=== PATIENT | female | born 1985 | race Two or more races ===

== ENCOUNTER 2017-06-03 14:00 | Emergency (ER) | payer MEDICAID ==
[~2017-06-03] VITALS: Ht 160 cm; Wt 102.1 kg
[~2017-06-03 14:00] MED LIST: ALBUTEROL SULF8.5 GM INH; AZITHROMYCIN250 MG ORAL; AZITHROMYCIN250 MG PO; CEPHALEXIN500 MG ORAL; CIPRO500 MG PO; COLACE100 MG ORAL; HYDROCORTISONE28 G2 TP; IBUPROFEN400 MG PO; IBUPROFEN600 MG ORAL; IBUPROFEN600 MG PO; MEDROL DOSEPAK4 MG ORAL; NKM; NORCO 5-325 TA1 EACH ORAL; NORCO 5/3251 TAB ORAL; PHENAZOPYRIDIN100 MG ORAL; PREDNISONE20 MG ORAL; PREDNISONE20 MG PO; VALIUM5 MG PO; ZOFRAN8 MG ORAL
[2017-06-03 14:53] LABS: APPEARANCE,URINE CLEAR; KETONES,URINE NEGATIVE (NEGATIVE); LEUKOCYTE ESTERASE ,URINE 1+ (NEGATIVE); NITRITE,URINE NEGATIVE (NEGATIVE); PH,URINE 6 (4.5-8.0); PROTEIN,URINE NEGATIVE (NEGATIVE); UROBILINOGEN,URINE 1 MG/DL (0.0-1.0)
[2017-06-03 15:04] LABS: BACTERIA,URINE FEW /HPF; RBC,URINE 0-2 /HPF (0 - 2); SQUAMOUS EPITHELIAL CELL,UR FEW /LPF (NONE/OCC); WBC,URINE 0-2 /HPF (0 - 2)
--- NOTE | 2017-06-03 15:49 | Emergency Room Report ---
History of Present Illness General Chief Complaint: Abdominal Pain Source: Patient Present Illness HPI 31 YO Female presents to the ED C/O 04/10 in severity Left - sided adnexal pain monthly since november. pt. reports pain is usually same side and 1 week prior to her period. pt. states this time pain did not resolve after period. pt. reports hx of back problems and sciatica. denies worsening of sciatic symptoms. pt. states pain is exacerbated after walking. denies vaginal d/c, lesions, or hx of STI, pt. states she just has pap smear and STI testing performed by OBGYN and was all negative. pt. states she told OBGYN about her symptoms and has not had imaging. Pt states pain typically comes and goes , however now is constant. denies N/V/F/C, dysuria, frequency, or . denies trauma or fall. pt. states pain will sometimes radiate down to the distal left ant. thigh. denies abdominal or flank pain. Denies constipation or diarrhea. denies hx of hernias. Denies CP, Palpitations, LOC, AMS, dizziness, Changes in Vision, Sensation, paresthesias, or a sudden severe headache. Allergies: Coded Allergies: No Known Allergies (Unverified , 09/21/12) Patient History Past Medical History: see triage record Past Surgical History: none Pertinent Family History: none Last Menstrual Period: 05/27/17 Now: No : 4 Para: 1 Reviewed Nursing Documentation: PMH: Agreed, PSxH: Agreed Nursing Documentation-PMH Hx Cardiac Problems: Yes - HIGH CHOLESTEROL Hx Asthma: Yes Review of Systems All Other Systems: negative except mentioned in HPI Physical Exam Vital Signs Date Time Temp Pulse Resp B/P Pulse Ox O2 Delivery O2 Flow Rate FiO2 06/03/17 14:17 98.4 90 18 113/82 96 Room Air Sp02 EP Interpretation: reviewed, normal General Appearance: no apparent distress, alert, GCS 15, non-toxic Head: normocephalic, atraumatic Eyes: bilateral eye PERRL, bilateral eye normal inspection ENT: hearing grossly normal, normal pharynx, no angioedema, normal voice Neck: full range of motion, supple/symm/no masses Respiratory: lungs clear, normal breath sounds, speaking full sentences Cardiovascular #1: regular rate, rhythm, no edema Gastrointestinal: normal bowel sounds, non tender, soft, no guarding, no rebound Rectal: deferred Genitourinary: normal inspection, no CVA tenderness, other - left adnexal ttp. no palpable hernias. Musculoskeletal: back normal, gait/station normal, normal range of motion, non- tender Neurologic: alert, oriented x3, responsive, motor strength/tone normal, sensory intact, speech normal Psychiatric: judgement/insight normal, memory normal, mood/affect normal Skin: normal color, no rash, warm/dry, well hydrated Lymphatic: no adenopathy Medical Decision Making PA Attestation Dr. tee is my supervising Physician whom patient management has been discussed with. Diagnostic Impression: Primary Impression: Adnexal fullness Additional Impressions: Left adnexal tenderness Round ligament pain ER Course 31 YO Female presents to the ED C/O 04/10 in severity Left - sided adnexal pain monthly since november. pt. reports pain is usually same side and 1 week prior to her period. pt. states this time pain did not resolve after period. pt. reports hx of back problems and sciatica. denies worsening of sciatic symptoms. pt. states pain is exacerbated after walking. denies vaginal d/c, lesions, or hx of STI, pt. states she just has pap smear and STI testing performed by OBGYN and was all negative. pt. states she told OBGYN about her symptoms and has not had imaging. Pt states pain typically comes and goes , however now is constant. denies N/V/F/C, dysuria, frequency, or . denies trauma or fall. pt. states pain will sometimes radiate down to the distal left ant. thigh. denies abdominal or flank pain. Denies constipation or diarrhea. denies hx of hernias. Denies CP, Palpitations, LOC, AMS, dizziness, Changes in Vision, Sensation, paresthesias, or a sudden severe headache. Ddx considered but are not limited to Diverticulitis, acute appy, ovarian torsion, ectopic , PID tubo-ovarian abscess, ovarian cyst, UTI just to name a few. Vital signs: are WNL, pt. is afebrile H&PE are most consistent with possible ovarian cyst, will r/o torsion, ectopic , and stone. ORDERS: -UA:WNL -URINE HCG:Negative -Pelvic US Complete: WNL, no torsion, cysts, or masses per official radiology report. ED INTERVENTIONS: - none at this time. pt. declined motrin. d/w pt. she is stable for close outpatient follow up with her PCP and OBGYN. DISCHARGE: At this time pt. is stable for d/c to home. Will provide printed patient care instructions, and any necessary prescriptions. Care plan and follow up instructions have been discussed with the patient prior to discharge. Labs Test 06/03/17 14:30 Urine Color Yellow Urine Appearance Clear Urine pH 6 (4.5-8.0) Urine Specific [place] 1.015 (1.005-1.035) Urine Protein Negative (NEGATIVE) Urine Glucose (UA) Negative (NEGATIVE) Urine Ketones Negative (NEGATIVE) Urine Occult Blood 2+ (NEGATIVE) Urine Nitrite Negative (NEGATIVE) Urine Bilirubin Negative (NEGATIVE) Urine Urobilinogen 1 MG/DL (0.0-1.0) Urine Leukocyte Esterase 1+ (NEGATIVE) Urine RBC 0-2 /HPF (0 - 2) Urine WBC 0-2 /HPF (0 - 2) Urine Squamous Epithelial Cells Few /LPF (NONE/OCC) Urine Bacteria Few /HPF (NONE) Urine HCG, Qualitative Negative Last Vital Signs Date Time Temp Pulse Resp B/P Pulse Ox O2 Delivery O2 Flow Rate FiO2 06/03/17 14:17 98.4 90 18 113/82 96 Room Air Disposition: HOME, SELF-CARE Condition: Stable Scripts Ibuprofen* (MOTRIN*) 600 Mg Tablet 600 MG ORAL THREE TIMES A DAY, #30 TAB 0 Refills Prov: Waleska Bahena 06/03/17 Referrals: PILI DEGROOT,REFERRING (PCP) Patient Instructions: Pain Without a Known Cause Additional Instructions: Take medications as directed. Follow up with a Primary Care Provider in 3-5 days, even if your symptoms have resolved. --Please review list of primary care clinics, if you do not already have a primary care provider Return sooner to ED if new symptoms occur, or current symptoms become worse. - Please note that this Emergency Department Report was dictated using [employer] technology software, occasionally this can lead to erroneous entry secondary to interpretation by the dictation equipment. Waleska Bahena Jun 03, 2017 15:49
--- NOTE | 2017-06-03 16:01 | Diagnostic Imaging Report ---
Indication:Lower abdominal and pelvic pain Technique: Grayscale and duplex Doppler imaging of the pelvis performed utilizing a transabdominal scan and endovaginal scan. Comparison: None Findings: No abnormalities of the uterus or ovaries identified. The uterus measures 9.6 x 6.7 x 4.7 cm. Endometrium is normal in appearance and measures between 3 and 4 mm in thickness. Some follicles are noted within both ovaries. Both ovaries show Doppler evidence of blood flow. Right ovary measures 4.3 x 3.4 x 1.9 cm. Left ovary 2.8 x 3 point 4 x 4 2.0 cm. Impression: Negative pelvic ultrasound
[2017-06-03] MEDS ORDERED: IBUPROFEN600 MG ORAL (16:10)
[2017-06-03 16:27] VITALS: BP 113/82
== END 2017-06-03 16:15 | disposition home or self-care (01) ==
LOC: EMR 14:50
DX: R10.2 Pelvic and perineal pain (principal)
CPT/HCPCS: 76830; 76856; 81003; 81025; 99283

== ENCOUNTER 2017-06-15 17:08 | Emergency (ER) | payer MEDICAID ==
[~2017-06-15] VITALS: Ht 160 cm; Wt 111.1 kg
[2017-06-15 17:14] VITALS: BP 117/79
[2017-06-15] MEDS ORDERED: ALBUTEROL SULF8.5 GM INH (17:18)
[2017-06-15] MEDS ORDERED: Ipratropium 0.02% Inh Soln 2.5ml UD HHN ONE (17:45)
[2017-06-15] MEDS ORDERED: Albuterol ud Inhalation HHN ONE (17:45)
[2017-06-15] MEDS ORDERED: PROAIR HFA8.5 GM INH (18:27)
[2017-06-15] MEDS ORDERED: PROMETHAZI6.25 MG/1 ORAL (18:27)
[2017-06-15] MEDS ORDERED: IBUPROFEN600 MG ORAL (18:27)
[2017-06-15] MEDS ORDERED: PREDNISONE20 MG ORAL (18:27)
[2017-06-15 18:30] VITALS: BP 119/81
--- NOTE | 2017-06-15 20:37 | Emergency Room Report ---
History of Present Illness General Chief Complaint: Upper Respiratory Illness Source: Patient Present Illness HPI The patient is a 31-year-old female presenting for subjective fevers and productive cough for the past 5 days. She states that she recently returned from a [facility] [place]. No known sick contacts. She admits to a history of asthma but has not had to use albuterol recently. She this is a green sputum with cough. She denies other symptoms including nausea, vomiting, shortness of breath, chest pain, abdominal pain, headache, neck pain or stiffness Allergies: Coded Allergies: No Known Allergies (Unverified , 09/21/12) Patient History Past Medical History: see triage record Pertinent Family History: none Last Menstrual Period: Two weeks ago Now: No Reviewed Nursing Documentation: PMH: Agreed, PSxH: Agreed Nursing Documentation-PMH Hx Cardiac Problems: Yes - HIGH CHOLESTEROL Review of Systems All Other Systems: negative except mentioned in HPI Physical Exam Vital Signs Date Time Temp Pulse Resp B/P Pulse Ox O2 Delivery O2 Flow Rate FiO2 06/15/17 17:14 99.3 100 18 117/79 97 Room Air 06/15/17 17:49 21 Sp02 EP Interpretation: reviewed, normal General Appearance: no apparent distress, alert, GCS 15, non-toxic Head: normocephalic, atraumatic Eyes: bilateral eye PERRL, bilateral eye normal inspection ENT: hearing grossly normal, normal pharynx, no angioedema, normal voice Neck: full range of motion, supple/symm/no masses Respiratory: chest non-tender, no accessory muscle use, wheezing - diffuse Cardiovascular #1: regular rate, rhythm, no edema Musculoskeletal: back normal, gait/station normal, normal range of motion, non- tender Neurologic: alert, oriented x3, responsive, motor strength/tone normal, sensory intact, speech normal Psychiatric: judgement/insight normal, memory normal, mood/affect normal, no suicidal/homicidal ideation Skin: normal color, no rash, warm/dry, well hydrated Lymphatic: no adenopathy Medical Decision Making PA Attestation Dr. Giles is my supervising physician. Patient management was discussed with my supervising physician Diagnostic Impression: Primary Impression: Bronchitis ER Course The patient is a 31-year-old female presenting for fever and cough Differential diagnosis include but not limited to pharyngitis, sinusitis, AOM, bronchitis, PNA PE: afebrile. No tachypnea. No apparent distress. No TTP over maxillary or frontal sinuses. Lungs: diffuse wheezing. No accessory muscle use. No resp distress Heart: RRR, no abnormal heart sounds Ears: external auditory canal clear. Non erythematous. Bilat TM intact. Cone of light present bilat. No bulging of TM. No serous fluid seen. no nasal D/C Nor cervical lymphad No tonsillar exudate. Uvula midline.Oropharynx non erythematous The patient is given a breathing treatment and symptoms have improved. Wheezing has decreased. CXR unremarkable The patient will be discharged home with a prescription for steroids, cough medication, and motrin Chest X-Ray Diagnostic Results Chest X-Ray Diagnostic Results : Chest X-Ray Ordered: Yes # of Views/Limited/Complete: 1 View Indication: Chest Pain EP Interpretation: Yes Interpretation: no consolidation, no effusion, no pneumothorax Impression: No acute disease Interpreting ER Provider: Myself KILO Scribe Text My interpretation of the chest xrays are there is no consolidation, no effusion , no acute cardiopulmonary disease, no pneumothorax Last Vital Signs Date Time Temp Pulse Resp B/P Pulse Ox O2 Delivery O2 Flow Rate FiO2 06/15/17 18:30 99.3 89 17 119/81 100 Room Air 21 Status: improved Disposition: HOME, SELF-CARE Condition: Improved Scripts Promethazine Hcl (PROMETHAZINE HCL*) 6.25 Mg/5 Ml Syrup 5 ML ORAL Q8H, #120 ML 0 Refills Prov: TERZIAN,RUSTAM P.A. 06/15/17 Prednisone* (PREDNISONE*) 20 Mg Tablet 40 MG ORAL DAILY, #10 TAB Prov: TERZIAN,RUSTAM P.A. 06/15/17 Albuterol Sulfate* (PROAIR HFA*) 8.5 Gm Hfa.aer.ad 2 PUFFS INH Q6H, #8.5 GM 0 Refills Prov: TERZIAN,RUSTAM P.A. 06/15/17 Ibuprofen* (MOTRIN*) 600 Mg Tablet 600 MG ORAL Q8H Y for For Pain, #30 TAB 0 Refills Prov: TERZIAN,RUSTAM P.A. 06/15/17 Referrals: PILI DEGROOT,REFERRING (PCP) Patient Instructions: Acute Bronchitis Additional Instructions: I discussed my findings with the patient. All questions and concerns have been answered. Treatment and medication compliance have been addressed. I advised the patient that they need to follow up with PMD in 3-5 days. Return to ED if pain remains or worsens, cough worsens or remains, you notice blood in your sputum, you notice wheezing, you experience a fever, or if needed for any reason. Patient verbalized understanding of discharge instructions. RUSTAM RODRIGUEZ Jun 15, 2017 20:37
--- NOTE | 2017-06-16 09:46 | Diagnostic Imaging Report ---
Indication: COUGH Technique: One view of the chest Comparison: 10/16/2015 Findings: Lungs and pleural spaces are clear. Heart size is normal . No significant change Impression: No acute process
== END 2017-06-15 18:30 | disposition home or self-care (01) ==
LOC: EMR 17:31
DX: J20.9 Acute bronchitis, unspecified (principal)
CPT/HCPCS: 71010; 94640; 94664; 99284

== ENCOUNTER 2017-06-21 10:42 | Emergency (ER) | payer MEDICAID ==
[~2017-06-21] VITALS: Ht 160 cm; Wt 102.1 kg
[~2017-06-21 10:42] MED LIST changes: +PROAIR HFA8.5 GM INH; +PROMETHAZI6.25 MG/1 ORAL
[2017-06-21 10:51] VITALS: BP 122/80
[2017-06-21] MEDS ORDERED: AZITHROMYCIN250 MG ORAL (11:28)
[2017-06-21 11:40] VITALS: BP 122/80
--- NOTE | 2017-06-21 12:03 | Emergency Room Report ---
History of Present Illness General Chief Complaint: Upper Respiratory Illness Source: Patient Present Illness HPI 31YOF with continued cough after being treated for "bronchitis" here recently Woke up with chills, sweat this morning Taking meds as prescribed Denies SOB, chest pain, abd pain, headache Allergies: Coded Allergies: No Known Allergies (Unverified , 09/21/12) Patient History Past Medical History: none Past Surgical History: none Pertinent Family History: none Social History: Denies: alcohol use, drug use, smoking Last Menstrual Period: may Now: No Immunizations: UTD Reviewed Nursing Documentation: PMH: Agreed, PSxH: Agreed Nursing Documentation-PMH Past Medical History: No History, Except For Hx Cardiac Problems: Yes - HIGH CHOLESTEROL Hx Asthma: Yes Review of Systems All Other Systems: negative except mentioned in HPI Physical Exam Vital Signs Date Time Temp Pulse Resp B/P Pulse Ox O2 Delivery O2 Flow Rate FiO2 06/21/17 10:51 98.1 67 18 122/80 98 Room Air Sp02 EP Interpretation: reviewed, normal General Appearance: normal inspection, well appearing, no apparent distress, alert, GCS 15, non-toxic Head: normocephalic, atraumatic Eyes: bilateral eye EOMI, bilateral eye PERRL ENT: normal ENT inspection, hearing grossly normal, normal voice Neck: normal inspection, full range of motion, supple, no meningismus, no bony tend Respiratory: normal inspection, lungs clear, normal breath sounds, no respiratory distress, no retraction, no accessory muscle use, no wheezing, speaking full sentences Cardiovascular #1: regular rate, rhythm, no edema Gastrointestinal: normal inspection, normal bowel sounds, non tender, soft, no guarding, no hernia Genitourinary: no CVA tenderness Musculoskeletal: normal inspection, back normal, normal range of motion, Adair' s Sign negative Neurologic: normal inspection, alert, oriented x3, responsive, cafeteria attendant III-XII nml as tested, motor strength/tone normal, speech normal Psychiatric: normal inspection, judgement/insight normal, mood/affect normal Skin: normal inspection, normal color, no rash Medical Decision Making Diagnostic Impression: Primary Impression: Upper respiratory infection Qualified Codes: J06.9 - Acute upper respiratory infection, unspecified; B97.89 - Other viral agents as the cause of diseases classified elsewhere Additional Impression: Atypical pneumonia ER Course VSS. Afebrile. No signs or symptoms of pneumonia, sepsis Given chills, will add on Zpack for atypical PNA PMD followup DC home Last Vital Signs Date Time Temp Pulse Resp B/P Pulse Ox O2 Delivery O2 Flow Rate FiO2 06/21/17 11:23 67 18 Room Air 06/21/17 10:51 98.1 122/80 98 Status: improved Disposition: HOME, SELF-CARE Condition: Improved Scripts Azithromycin* (ZITHROMAX*) 250 Mg Tablet 250 MG ORAL DAILY, #6 TAB 0 Refills Take two tablets by mouth today, then take one tablet by mouth daily for four days Prov: INESSA PHILLIP M.D. 06/21/17 Referrals: PILI DEGROOT,REFERRING (PCP) Patient Instructions: Upper Respiratory Infection, Adult INESSA PHILLIP M.D. Jun 21, 2017 12:03
== END 2017-06-21 11:40 | disposition home or self-care (01) ==
LOC: EMR 11:10
DX: J18.9 Pneumonia, unspecified organism (principal); J45.909 Unspecified asthma, uncomplicated
CPT/HCPCS: 99283

== ENCOUNTER 2018-03-20 16:33 | Emergency (ER) | payer MEDICAID ==
[~2018-03-20] VITALS: Ht 160 cm; Wt 99.8 kg
[2018-03-20 16:41] VITALS: BP 115/77
--- NOTE | 2018-03-20 16:56 | Emergency Room Report ---
History of Present Illness General Chief Complaint: Flu Like Symptoms Present Illness HPI 32-year-old female presents to the emergency department complaining of 7 out of 10 in severity right ear pain in addition to thrush on her tongue. Patient also reports that she has a sore throat. Patient denies history of immunocompromise she denies history of diabetes. Patient does have a history of asthma and has an inhaler. Patient is not sure what the name of her inhaler is. Patient reports that she has felt feverish over the course of 2 days. Patient states that her ear pain is the most significant symptom. Patient denies ill contacts or recent travel. Denies CP, Palpitations, tinnitus, LOC, AMS, dizziness, Changes in Vision, Sensation, paresthesias, or a sudden severe headache. Allergies: Coded Allergies: No Known Allergies (Unverified , 09/21/12) Patient History Past Medical History: see triage record, asthma Past Surgical History: none Pertinent Family History: none, other - high cholesterol Now: No Immunizations: UTD Reviewed Nursing Documentation: PMH: Agreed; PSxH: Agreed Nursing Documentation-PMH Hx Cardiac Problems: Yes - HIGH CHOLESTEROL Hx Asthma: Yes Review of Systems All Other Systems: negative except mentioned in HPI Physical Exam Vital Signs Date Time Temp Pulse Resp B/P (MAP) Pulse Ox O2 Delivery O2 Flow Rate FiO2 03/20/18 16:38 98.3 92 20 115/77 99 Room Air 98.2 Sp02 EP Interpretation: reviewed, normal General Appearance: no apparent distress, alert, GCS 15, non-toxic Head: normocephalic, atraumatic Eyes: bilateral eye normal inspection, bilateral eye PERRL ENT: hearing grossly normal, normal voice, uvula midline, moist mucus membranes , pharyngeal erythema, other - Right TM Is erythematous and bulging. Canal is WNL no lacerations or discharge. the TM is intact/not perforated, no external ear ttp. There is a white non-adherent film on the posterior aspect of the tongue, more pronounced on the left side. no obvious migration down the throat. Neck: full range of motion, no meningismus Respiratory: chest non-tender, lungs clear, normal breath sounds, no rhonchi, no respiratory distress, no wheezing, speaking full sentences Cardiovascular #1: regular rate, rhythm Musculoskeletal: back normal, gait/station normal, normal range of motion Neurologic: alert, oriented x3, responsive, motor strength/tone normal, sensory intact, speech normal, grossly normal Psychiatric: judgement/insight normal Skin: normal color, no rash, warm/dry, well hydrated Lymphatic: no adenopathy Medical Decision Making PA Attestation Dr. Giles is my supervising Physician whom patient management has been discussed with. Diagnostic Impression: Primary Impression: Otitis media Qualified Codes: H65.91 - Unspecified nonsuppurative otitis media, right ear Additional Impressions: Nasal congestion Oral thrush ER Course 32-year-old female presents to the emergency department complaining of 7 out of 10 in severity right ear pain in addition to thrush on her tongue. Patient also reports that she has a sore throat. Patient denies history of immunocompromise she denies history of diabetes. Patient does have a history of asthma and has an inhaler. Patient is not sure what the name of her inhaler is. Patient reports that she has felt feverish over the course of 2 days. Patient states that her ear pain is the most significant symptom. Patient denies ill contacts or recent travel. Denies CP, Palpitations, tinnitus, LOC, AMS, dizziness, Changes in Vision, Sensation, paresthesias, or a sudden severe headache. Ddx considered but are not limited to OM, OE, mastoiditis, TM perforation, FB, Thrush, diphtheria, systemic fungal infection just to name a few. Vital signs: are WNL, pt. is afebrile H&PE are most consistent with otitis media. the Canal is WNL no lacerations or discharge. the TM is intact/not perforated. ORDERS: none required at this time, the diagnosis is clinical -OTOSCOPY: Right TM Is erythematous and bulging. Canal is WNL no lacerations or discharge. the TM is intact/not perforated. - There is a white non-adherent film on the posterior aspect of the tongue, more pronounced on the left side. no obvious migration down the throat. ED INTERVENTIONS: None required at this time. DISCHARGE: At this time pt. is stable for d/c to home. With PO ABX. Will provide printed patient care instructions, and any necessary prescriptions. Care plan and follow up instructions have been discussed with the patient prior to discharge. RX: Augmentin Suspension 600mg/5ml - take 2.5ml BID x 10 days Last Vital Signs Date Time Temp Pulse Resp B/P (MAP) Pulse Ox O2 Delivery O2 Flow Rate FiO2 03/20/18 16:41 Room Air 03/20/18 16:41 98.2 92 20 115/77 99 98.2 Disposition: HOME, SELF-CARE Condition: Stable Scripts Nystatin* (NYSTATIN*) 100,000 Unit/1 Ml Oral.susp 5 ML ORAL FOUR TIMES A DAY for 5 Days, #150 ML Swish in the mouth and retain for as long as possible (several minutes) before swallowing Prov: Waleska Bahena 03/20/18 Oxymetazoline Hcl* (AFRIN*) 15 Ml Mist 2 SPRAYS NASAL TWICE A DAY for 3 Days, #15 ML 0 Refills DO NOT USE FOR MORE THAN 3 CONSECUTIVE DAYS. Prov: Waleska Bahena 03/20/18 Amoxicillin/Potassium Clav 875-125* (AUGMENTIN 875-125 TABLET*) 1 Each Tablet 1 TAB ORAL TWICE A DAY for 7 Days, #14 TAB Prov: Waleska Bahena 03/20/18 Patient Instructions: Otitis Media, Adult, Thrush, Adult, [id number] Additional Instructions: Take medications as directed. Follow up with a Primary Care Provider in 3-5 days, even if your symptoms have resolved. --Please review list of primary care clinics, if you do not already have a primary care provider Return sooner to ED if new symptoms occur, or current symptoms become worse. - Please note that this Emergency Department Report was dictated using [employer] technology software, occasionally this can lead to erroneous entry secondary to interpretation by the dictation equipment. Waleska Bahena March 20, 2018 16:56
[2018-03-20] MEDS ORDERED: AFRIN15 ML NASAL (17:09)
[2018-03-20] MEDS ORDERED: NYSTATIN100000 UN1 ORAL (17:09)
[2018-03-20] MEDS ORDERED: AUGMENTIN 875-1 EAC1 ORAL (17:09)
[2018-03-20 17:35] VITALS: BP 115/77
== END 2018-03-20 17:36 | disposition home or self-care (01) ==
LOC: EMR 17:05
DX: H66.91 Otitis media, unspecified, right ear (principal); R09.81 Nasal congestion; B37.0 Candidal stomatitis
CPT/HCPCS: 99284

== ENCOUNTER 2018-07-25 06:55 | Emergency (ER) | payer MEDICAID ==
[~2018-07-25] VITALS: Ht 160 cm; Wt 99.3 kg
[~2018-07-25 06:55] MED LIST changes: +AFRIN15 ML NASAL; +AUGMENTIN 875-1 EAC1 ORAL; +NYSTATIN100000 UN1 ORAL
[2018-07-25] MEDS ORDERED: ADULT WAL-100 MG/5 M ORAL (07:32)
[2018-07-25] MEDS ORDERED: PREDNISONE20 MG ORAL (07:32)
[2018-07-25] MEDS ORDERED: PROAIR HFA8.5 GM INH (07:32)
[2018-07-25 07:39] VITALS: BP 140/83
--- NOTE | 2018-07-25 07:57 | Emergency Room Report ---
History of Present Illness General Chief Complaint: Flu Like Symptoms Source: Patient Present Illness HPI Patient is a 32-year-old female who presented after increased nasal congestion and cough. Patient had recently been seen by her ENT and was started on amoxicillin for tonsillitis. The patient subsequently been seen by her primary care physician and had been started on azithromycin for bronchitis. The patient had prior history of asthma. She reports having increased cough with clear phlegm. She presents being febrile several days ago but denies any recent fever. She had not been vomiting. Allergies: Coded Allergies: No Known Allergies (Unverified , 09/21/12) Patient History Last Menstrual Period: Now: No : 4 Para: 1 Reviewed Nursing Documentation: PMH: Agreed; PSxH: Agreed Nursing Documentation-PMH Past Medical History: No History, Except For Hx Cardiac Problems: Yes - HIGH CHOLESTEROL Hx Asthma: Yes Review of Systems All Other Systems: negative except mentioned in HPI Physical Exam Vital Signs Date Time Temp Pulse Resp B/P (MAP) Pulse Ox O2 Delivery O2 Flow Rate FiO2 07/25/18 07:03 98.2 84 16 140/83 98 Room Air 98.2 General Appearance: well appearing, no apparent distress, alert, GCS 15 Head: normocephalic, atraumatic ENT: hearing grossly normal, normal voice, other Neck: full range of motion, supple Respiratory: no respiratory distress, speaking full sentences Cardiovascular #1: normal inspection, regular rate, rhythm, no edema Gastrointestinal: normal inspection Musculoskeletal: normal inspection, no calf tenderness Neurologic: normal gait Psychiatric: mood/affect normal Skin: no rash Medical Decision Making Diagnostic Impression: Primary Impression: Bronchitis ER Course Patient presented for nasal congestion cough. Differential diagnosis included but was not limited to bronchitis, pneumonia, pulmonary embolism, pericarditis, asthma, foreign body. Patient has a benign exam and does not appear to require any further imaging or laboratory testing at this time. The patient presented in some residual bronchitis from likely viral respiratory infection. The patient does not appear to be actively infected at this time. The patient given prescription for oral steroids as well as cough medications. Patient is advised follow-up with her primary care physician and to return if there is any worsening of condition Last Vital Signs Date Time Temp Pulse Resp B/P (MAP) Pulse Ox O2 Delivery O2 Flow Rate FiO2 07/25/18 07:39 98.2 16 140/83 98 Room Air 98.2 9/24/18 07:13 84 Status: improved Disposition: HOME, SELF-CARE Condition: Stable Scripts Guaifenesin* (ADULT WAL-TUSSIN*) 100 Mg/5 Ml Liquid 10 ML ORAL Q4H, #120 ML Prov: Janes Giles MD 07/25/18 Prednisone* (PREDNISONE*) 20 Mg Tablet 40 MG ORAL DAILY, #10 TAB Prov: Janes Giles MD 07/25/18 Albuterol Sulfate* (PROAIR HFA*) 8.5 Gm Hfa.aer.ad 2 PUFFS INH Q6H, #8.5 GM 0 Refills Prov: Janes Giles MD 07/25/18 Referrals: NON PHYSICIAN (PCP) Patient Instructions: Acute Bronchitis Janes Giles MD Jul 25, 2018 07:57
== END 2018-07-25 07:39 | disposition home or self-care (01) ==
LOC: EMR 07:10
DX: J45.909 Unspecified asthma, uncomplicated (principal); E78.00 Pure hypercholesterolemia, unspecified
CPT/HCPCS: 99283

== ENCOUNTER 2018-08-06 09:30 | Emergency (ER) | payer MEDICAID ==
[~2018-08-06] VITALS: Ht 160 cm; Wt 98.9 kg
[~2018-08-06 09:30] MED LIST changes: +ADULT WAL-100 MG/5 M ORAL
--- NOTE | 2018-08-06 10:05 | Emergency Room Report ---
History of Present Illness General Chief Complaint: Asthma Source: Patient Present Illness ELIZ Smith is a very pleasant 32-year-old female who presents with shortness of breath wheezing nasal/chest congestion for the last month. She has been followed closely by her PCP. She has been treated with 2 courses of antibiotics. She was also treated with prednisone. She has used her albuterol intermittently. Her PCP asked her to stop Claritin use in anticipation of certified genetic counselor consultation. She is waiting for referral at this time. She does use tobacco. She stopped smoking cigarettes 2 weeks ago. She recently began smoking marijuana using papers and blunts. She has smoked more than she had in the past. She denies any chest pain. She's most concerned with shortness of breath with exertion and wheezing. Allergies: Coded Allergies: No Known Allergies (Unverified , 09/21/12) Patient History Last Menstrual Period: 07/17/2018 Now: No Reviewed Nursing Documentation: PMH: Agreed; PSxH: Agreed Nursing Documentation-PMH Past Medical History: No History, Except For Hx Cardiac Problems: Yes - HIGH CHOLESTEROL Hx Asthma: Yes - bronchitis Review of Systems Constitutional: Reports: malaise; Denies: fever Respiratory: Reports: cough, wheezing, sputum Cardiovascular: Denies: chest pain Skin: Denies: rash Neurological: Denies: headache Physical Exam Vital Signs Date Time Temp Pulse Resp B/P (MAP) Pulse Ox O2 Delivery O2 Flow Rate FiO2 08/06/18 09:42 98.2 93 14 110/74 96 Room Air 98.2 Sp02 EP Interpretation: reviewed, normal General Appearance: no apparent distress, alert, GCS 15, non-toxic Head: normocephalic, atraumatic Eyes: bilateral eye normal inspection ENT: hearing grossly normal, normal pharynx, no angioedema, normal voice Neck: full range of motion, supple/symm/no masses Respiratory: chest non-tender, lungs clear, normal breath sounds, no rhonchi, no respiratory distress, no retraction, no accessory muscle use, no wheezing, speaking full sentences Cardiovascular #1: regular rate, rhythm, no edema Cardiovascular #2: 2+ radial (R) Gastrointestinal: normal bowel sounds, non tender, soft, non-distended, no guarding, no rebound Genitourinary: normal inspection, no CVA tenderness Musculoskeletal: back normal, gait/station normal, normal range of motion, non- tender, calf tenderness Neurologic: alert, oriented x3, responsive, motor strength/tone normal, sensory intact, speech normal Psychiatric: judgement/insight normal, memory normal, mood/affect normal, no suicidal/homicidal ideation Skin: normal color, no rash, warm/dry, well hydrated Lymphatic: no adenopathy Medical Decision Making Diagnostic Impression: Primary Impression: Asthma ER Course Sarah is a pleasant 32 yo female who was recently diagnosed with asthma by PCP. She has had wheezing since childhood. Multiple family members have hx of asthma. Encouraged smoking cessation of any kind. I encouraged regular use of albuterol and resuming use of claritin. She was reassured to hear that I did not suspect PNA. No indication of PE/ACS/PTX. dc'd home Normal vital signs reviewed Last Vital Signs Date Time Temp Pulse Resp B/P (MAP) Pulse Ox O2 Delivery O2 Flow Rate FiO2 08/06/18 09:55 93 14 Room Air 08/06/18 09:42 98.2 110/74 96 98.2 Disposition: HOME, SELF-CARE Candida Son MD Aug 06, 2018 10:05
[2018-08-06 10:12] VITALS: BP 114/78
== END 2018-08-06 10:12 | disposition home or self-care (01) ==
LOC: EMR 10:00
DX: J45.909 Unspecified asthma, uncomplicated (principal); E78.00 Pure hypercholesterolemia, unspecified
CPT/HCPCS: 99282

== ENCOUNTER 2020-09-25 09:18 | Emergency (ER) | payer MEDICAID ==
[~2020-09-25] VITALS: Ht 160 cm; Wt 97.5 kg
[2020-09-25] MEDS ORDERED: BACLOFEN10 MG ORAL (09:28)
--- NOTE | 2020-09-25 09:31 | NUR ---
ED Nurse Note: Pt ambulated to ed c/o right lower back pain radiating to right hamstring and right calve s/p lifting furniture "consistently 3 weeks at work". Pt reports pain as a "pulling" sensation. Skin, dry, intacnt. No bruising, deformities noted.
--- NOTE | 2020-09-25 09:32 | NUR ---
ED Nurse Note: Pt states that she was seen at an urgent care and was provided with Baclofen. "It helped but the pain returns"
[2020-09-25 09:33] VITALS: BP 117/78
--- NOTE | 2020-09-25 09:34 | NUR ---
ED Nurse Note: ERMD at bedside
[2020-09-25 09:40] VITALS: BP 123/74
--- NOTE | 2020-09-25 09:40 | NUR ---
ER DISCHARGE NOTE: Patient is cleared to be discharged per ERMD, pt is aox4, on room air, with stable vital signs. pt was given dc and prescription instructions, pt was able to verbalize understanding, pt id band removed. pt is able to ambulate with steady gait. pt took all belongings.
[2020-09-25] MEDS ORDERED: ROBAXIN-750750 MG PO (09:46)
[2020-09-25] MEDS ORDERED: LIDODERM700 M1 TOPIC (09:46)
[2020-09-25] MEDS ORDERED: IBUPROFEN600 M1 ORAL (09:46)
--- NOTE | 2020-09-25 10:11 | Emergency Room Report ---
History of Present Illness General Chief Complaint: Lower Back Pain or Injury Source: Patient Present Illness HPI 34-year-old female presents complaining of back pain. States this started after lifting heavy items. Started 3 weeks ago. Pain is right-sided, dull, radiating down to the buttock. 9 out of 10. Went to urgent care was prescribed baclofen with minimal relief. Denies bowel or bladder incontinence. Denies any leg or motor weakness. No other aggravating relieving factors. Denies any other associated symptoms Allergies: Coded Allergies: No Known Allergies (Unverified , 09/21/12) COVID-19 Screening Contact w/high risk pt: No Experienced COVID-19 symptoms?: No COVID-19 Testing performed PER DIEM PHYSICAL THERAPIST ASSISTANT: Yes COVID-19 Screening: Negative COVID-19 COVID-19 Testing Source: [employer] Patient History Past Medical History: asthma Past Surgical History: none Pertinent Family History: none Social History: Denies: smoking, alcohol use, drug use Last Menstrual Period: 09/02/20 Now: No Immunizations: UTD Reviewed Nursing Documentation: PMH: Agreed; PSxH: Agreed Nursing Documentation-PMH Past Medical History: No History, Except For Hx Cardiac Problems: Yes - HIGH CHOLESTEROL Hx Asthma: Yes Review of Systems All Other Systems: negative except mentioned in HPI Physical Exam Vital Signs Date Time Temp Pulse Resp B/P (MAP) Pulse Ox O2 Delivery O2 Flow Rate FiO2 09/25/20 09:22 97.7 78 14 117/78 (91) 99 Room Air Sp02 EP Interpretation: reviewed, normal General Appearance: no apparent distress, alert, GCS 15, non-toxic Head: normocephalic, atraumatic Eyes: bilateral eye normal inspection, bilateral eye PERRL ENT: hearing grossly normal, normal pharynx, no angioedema, normal voice Neck: full range of motion, supple/symm/no masses Respiratory: chest non-tender, lungs clear, normal breath sounds, speaking full sentences Cardiovascular #1: regular rate, rhythm, no edema Cardiovascular #2: 2+ carotid (R), 2+ carotid (L), 2+ radial (R), 2+ radial (L), 2+ dorsalis pedis (R), 2+ dorsalis pedis (L) Gastrointestinal: normal bowel sounds, non tender, soft, non-distended, no guarding, no rebound Rectal: deferred Genitourinary: normal inspection, no CVA tenderness Musculoskeletal: back normal, normal range of motion, gait/station normal, tender - paraspinal lumbar tenderness Neurologic: alert, motor strength/tone normal, oriented x3, sensory intact, responsive, speech normal Psychiatric: judgement/insight normal, memory normal, mood/affect normal, no suicidal/homicidal ideation Reflexes: 3+ bicep (R), 3+ bicep (L), 3+ tricep (R), 3+ tricep (L), 3+ knee (R), 3+ knee (L) Skin: no rash Lymphatic: no adenopathy Medical Decision Making Diagnostic Impression: Primary Impression: Low back pain Qualified Codes: M54.41 - Lumbago with sciatica, right side ER Course Hospital Course 34-year-old female presents complaining of back pain for the last 3 weeks Differential diagnoses include: pyelonephritis, kidney stone, muscle strain, Lspine fracture Clinical course Patient placed on stretcher. After initial history physical exam reveals female in no acute distress. There is pain to the lower back. No midline tenderness. 5 out of 5 strength in lower extremity. No sensory deficits. discussed findings with patient. There could be a component of sciatica. No focal deficits. Will prescribe combination of anti-inflammatories, muscle relaxers, Lidoderm patch. Patient would benefit from outpatient Ortho evaluation for possible physical therapy. I will provide referrals. Safe for discharge close outpatient follow-up Diagnosis - back pain Stable and discharged to home with prescription for Motrin, Robaxin, Lidoderm. Followup with PMD/ortho. Return to ED if symptoms recur or worsen Last Vital Signs Date Time Temp Pulse Resp B/P (MAP) Pulse Ox O2 Delivery O2 Flow Rate FiO2 09/25/20 09:40 97.7 76 15 123/74 100 Room Air Status: improved Disposition: HOME, SELF-CARE Condition: Stable Scripts Lidocaine Patch* (Lidoderm Patch*) 1 Each Adh..patch 1 PATCH TOPIC DAILY, #7 PATCH 0 Refills Patch(es) may remain in place for up to 12 hours in any 24-hour period. Prov: Antonio Sheppard MD 09/25/20 Methocarbamol* (ROBAXIN-750*) 750 Mg Tablet 750 MG PO QID, #28 TAB 0 Refills Prov: Antonio Sheppard MD 09/25/20 Ibuprofen* (MOTRIN*) 600 Mg Tablet 600 MG ORAL Q8H PRN for FOR PAIN, #30 TAB 0 Refills Prov: Antonio Sheppard MD 09/25/20 Referrals: PILI DEGROOT,REFERRING (PCP) [facility] 24 hour /7 days a week by Appointment Only [address] [facility] [address] [facility] [id number] Patient Instructions: Low Back Sprain With Rehab[facility] Additional Instructions: take either robaxin or baclofen. add motrin and lidoderm patch. heating pad when not using lidoderm patch. Antonio Sheppard MD Sep 25, 2020 10:11
== END 2020-09-25 09:40 | disposition home or self-care (01) ==
LOC: EMR 09:37
DX: M54.41 Lumbago with sciatica, right side (principal); E78.00 Pure hypercholesterolemia, unspecified; J45.909 Unspecified asthma, uncomplicated
CPT/HCPCS: 99282